=== PATIENT | male | born 1990 ===

== ENCOUNTER 2020-03-28 20:11 | Emergency (ER) | payer SELFPAY ==
[2020-03-28 22:38] VITALS: BP 139/70
[2020-03-28] MEDS ORDERED: IBUPROFEN 800 MG TAB PO ONE (23:35)
--- NOTE | 2020-03-29 00:20 | XRay Report ---
EXAMINATION: Left wrist radiograph, 3 views, 03/29/2020 CLINICAL INFORMATION: Left wrist pain after dog bite several months ago COMPARISON: None. FINDINGS: There is mild soft tissue swelling of the left wrist without evidence of acute fracture or dislocation. Signer Name: Latha Sears MD Signed: 03/29/2020 12:16 AM Workstation Name: [id number]
--- NOTE | 2020-03-29 00:52 | Emergency Department Report ---
ED Upper Extremity Inj HPI - General Chief Complaint: Extremity Injury, Upper Stated Complaint: LT WRIST PAIN Time Seen by Provider: 03/28/20 23:33 Source: patient Mode of arrival: Ambulatory Limitations: No Limitations - Related Data Previous Rx's Medication Instructions Recorded Last Taken Type Ketorolac [Toradol] 10 mg PO Q6H PRN #14 tablet 03/29/20 Unknown Rx Allergies Allergy/AdvReac Type Severity Reaction Status Date / Time No Known Allergies Allergy Unverified 03/28/20 22:37 ED Review of Systems ROS: Stated complaint: LT WRIST PAIN Other details as noted in HPI ED Past Medical Hx - Social History Smoking Status: Never Smoker Substance Use Type: None - Medications Home Medications: Home Medications Medication Instructions Recorded Confirmed Last Taken Type Ketorolac [Toradol] 10 mg PO Q6H PRN #14 tablet 03/29/20 Unknown Rx ED Physical Exam - General Limitations: No Limitations ED Course Vital Signs 03/28/20 22:28 Temperature 98.0 F Pulse Rate 71 Respiratory 18 Rate Blood Pressure 139/70 O2 Sat by Pulse 100 Oximetry Critical care attestation.: If time is entered above; I have spent that time in minutes in the direct care of this critically ill patient, excluding procedure time. ED Disposition Disposition: DC-01 TO HOME OR SELFCARE Condition: Stable Instructions: Animal Bite, Adult, [id number], Contusion, Animal Bite, Adult, How to Use Cold Therapy Prescriptions: Ketorolac [Toradol] 10 mg PO Q6H PRN #14 tablet PRN Reason: Pain Referrals: PRIMARY CARE, [Primary Care Provider] - 3-5 Days [facility] [Provider Group] - 3-5 Days
== END 2020-03-29 01:00 | disposition home or self-care (01) ==
LOC: ED 20:11
DX: M25.532 Pain in left wrist (principal); Z79.899 Other long term (current) drug therapy